=== PATIENT | female | born 1950 | race Caucasian/White ===

== ENCOUNTER 2017-02-06 06:51 | Inpatient (IN) | payer BC ==
[2017-02-06] VITALS (11 sets, daily range): BP systolic 120–174; BP diastolic 52–87; PULSE 56–84; TEMP 97.8–98.6
[~2017-02-06] VITALS: Ht 165.1 cm; Wt 127.9 kg
[~2017-02-06 06:51] MED LIST: CELEXA40 MG PO; HYGROTON25 MG PO; LEVOXYL0.05 MG PO; MULTIPLE VITAMI1 CAP PO; WELLBUTRIN XL300 M1 PO
[2017-02-06] MEDS ORDERED: KLOR-CON 1010 MEQ PO (06:57)
[2017-02-06] MEDS ORDERED: GLUCOSAMINE & C1 CA1 PO (06:58)
[2017-02-06] MEDS ORDERED: ASPIRIN 32325 MG/TAB PO (06:58)
[2017-02-06 07:35] LABS: BASO % 0.3 % (0.0-2.0); EOS % 0.2 % (0-4.0); GRAN # 7.9 (1.4-6.5); GRAN % 79.9 % (42.2-75.2); HEMATOCRIT 41.3 % (37.0-47.0); LYMPH # 1.3 (1.2-3.4); LYMPH % 13.1 % (20.0-51.0); MEAN CELL VOLUME 90 fl (80.0-100.0); MEAN CORPUSCULAR HEMOGLOBIN 30 pg (27.0-31.0); MEAN CORPUSCULAR HGB CONC 34 g/dl (33.0-37.0); MEAN PLATELET VOLUME 9.7 fl (7.4-10.4); MONO # 0.6 (0.1-0.6); MONO % 6.3 % (1.7-9.3); PLATELET COUNT 281 K/mm3 (130-400); RED BLOOD COUNT 4.61 M/mm3 (4.10-5.30); REDCELL DISTRIBUTION WIDTH-CV 13.1 % (11.5-14.5); WHITE BLOOD COUNT 9.9 K/mm3 (4.8-10.8)
[2017-02-06 07:49] LABS: ADJUSTED CALCIUM 9.5 mg/dL (8.4-10.2); ALBUMIN 4.2 gm/dL (3.5-5.0); BILIRUBIN,TOTAL 0.9 mg/dL (0.0-1.0); CALCIUM 9.7 mg/dL (8.4-10.2); CREATININE, serum 0.64 mg/dL (0.52-1.25); POTASSIUM 3.2 mmol/L (3.4-5.0); TOTAL PROTEIN 8.2 gm/dL (6.4-8.2)
[2017-02-06 08:40] LABS: PH 7 (5-8); SQUAMOUS EPITHELIAL 0-2 /hpf; URINE APPEARANCE Clear; URINE BACTERIA None Seen /hpf; URINE BILIRUBIN Negative (NEGATIVE); URINE BLOOD 1+ (NEGATIVE); URINE COLOR Yellow; URINE GLUCOSE Negative (NEGATIVE); URINE KETONE 1+ (NEGATIVE); URINE UROBILINOGEN Negative (NEGATIVE); URINE WBC 0-2 /hpf
[2017-02-07 01:30] VITALS: BP 113/66; PULSE 73; TEMP 98.1
[2017-02-07 04:21] VITALS: BP 98/35; PULSE 84; TEMP 98.2
[2017-02-07 05:52] VITALS: BP 111/38; PULSE 79
[2017-02-07 06:17] VITALS: BP 134/69; PULSE 86
[2017-02-07 09:28] VITALS: BP 128/63; PULSE 74; TEMP 97.4
[2017-02-07 13:09] VITALS: BP 128/53; PULSE 75; TEMP 97.4
== END 2017-02-07 15:00 | disposition home or self-care (01) | DRG 418 ==
LOC: COL.ER 06:51 → SURG 08:21
PROVIDERS: Family Medicine; Surgery
PROC: BF131ZZ Fluoroscopy of Gallbladder and Bile Ducts using Low Osmolar Contrast (ICD-10-PCS; 2017-02-06)
PROC: 0F9040Z Drainage of Liver with Drainage Device, Percutaneous Endoscopic Approach (ICD-10-PCS; 2017-02-06)
PROC: 0FT44ZZ Resection of Gallbladder, Percutaneous Endoscopic Approach (ICD-10-PCS; principal; 2017-02-06 14:00)
DX: K80.00 Calculus of gallbladder with acute cholecystitis without obstruction (principal); K82.1 Hydrops of gallbladder; Z68.42 Body mass index [BMI] 45.0-49.9, adult; E66.01 Morbid (severe) obesity due to excess calories; Z85.41 Personal history of malignant neoplasm of cervix uteri
CPT/HCPCS: J0360; J0690; J1100; J2270; J2405; J2543; J2550; J2704; J2710; J2765; J3010; J7030; J7050; J7120; Q9967

== ENCOUNTER → 2018-11-25 | Outpatient (CLI) | payer MEDICARE, BC ==
[~2018-11-25] MED LIST changes: +ASPIRIN 32325 MG/TAB PO; +GLUCOSAMINE & C1 CA1 PO; +KLOR-CON 1010 MEQ PO
== END ==
LOC: MC.RAD 08:35
DX: Z12.31 Encounter for screening mammogram for malignant neoplasm of breast (principal)

== ENCOUNTER → 2020-12-15 | Outpatient (CLI) | payer MEDICARE, BC | LOC: MC.RAD 15:28 | DX: Z12.31 Encounter for screening mammogram for malignant neoplasm of breast (principal) ==

== ENCOUNTER → 2024-01-16 | Outpatient (CLI) | payer MEDICARE, BC | LOC: MC.RAD 15:24 | DX: Z12.31 Encounter for screening mammogram for malignant neoplasm of breast (principal) ==